=== PATIENT | female | born 1970 | race Caucasian/White ===

== ENCOUNTER 2017-06-08 20:31 | Inpatient (IN) | payer MEDICARE, BC ==
[2017-06-08] MEDS ORDERED: Ondansetron INJ* 2 MG/ML VIAL IV ONE (23:41)
[2017-06-08] MEDS ORDERED: Morphine INJ* 4 MG/ML 1 ML CARPUJECT IV ONE (23:41)
[2017-06-08] MEDS ORDERED: Metoclopramide IV* 5 MG/ML 2 ML VIAL IV SLOW PU ONE (23:57)
[2017-06-09] MEDS ORDERED: HYDROmorphone INJ* 2 MG/ML CARPUJECT SYRINGE IV SLOW PU ONE (00:02)
[2017-06-09] MEDS: NS 0.9% 1000 ML* 2,000 ML IV ONE ×2 (00:34→02:54)
[2017-06-09 00:39] LABS: Hematocrit 41 % (35-47); Hemoglobin 14.2 g/dl (12.0-16.0); Mean Corpuscular HGB Conc 35 g/dl (31-36); Mean Corpuscular Hemoglobin 31 pg (27-31); Mean Corpuscular Volume 87 fL (80-97); Mean Platelet Volume 10 um3 (7.4-10.4); Red Blood Count 4.67 10^6/ul (4.0-5.4); Red Cell Distribution Width 13 % (10.5-15); White Blood Count 8.5 10^3/ul (3.5-10.8)
[2017-06-09 01:00] LABS: ALT 37 U/L (7-52); Albumin 4.6 g/dL (3.2-5.2); Alkaline Phosphatase 72 U/L (34-104); BUN/Creatinine Ratio 8.8 (8-20); Blood Urea Nitrogen 7 mg/dL (6-24); C Reactive Protein 13.98 mg/L (< 5.00); CO2 Carbon Dioxide 28 mmol/L (22-32); Calcium 10.1 mg/dL (8.6-10.3); Chloride 99 mmol/L (101-111); EGFR African American 98.5 (>60); EGFR Non-African American 76.6 (>60); Globulin 4.6 g/dL (2-4); Glucose 90 mg/dL (70-100); Lipase 17 U/L (11.0-82.0); Sodium 138 mmol/L (133-145); Total Protein 9.2 g/dL (6.4-8.9)
[2017-06-09] MEDS ORDERED: Iohexol 300* (CONTRAST) 10 ML SDV IV ONE (01:20)
[2017-06-09 01:30] LABS: Anion Gap 11 mmol/L (2-11)
[2017-06-09 01:57] LABS: Urine Bacteria Absent (Absent); Urine Bilirubin Negative (Negative); Urine Glucose Negative (Negative); Urine Nitrite Negative (Negative)
[2017-06-09] MEDS ORDERED: PROCHLORPERAZINE INJ 5 MG/ML 2 ML VIAL IV ONE (02:11)
[2017-06-09] MEDS ORDERED: Acetaminophen TAB* 325 MG PO PRN (03:01)
[2017-06-09] MEDS ORDERED: Al Hydrox/Mg Hydrox/Simet LIQ* 30 ML UDC PO PRN (03:01)
[2017-06-09] MEDS ORDERED: Diazepam SYRINGE* 5 MG/ML SYRINGE IV PRN ×2 (03:03→03:09)
[2017-06-09] MEDS ORDERED: HYDROmorphone INJ* 1 MG/ML CARPUJECT SYRINGE IV SLOW PU PRN (03:03)
[2017-06-09] MEDS ORDERED: NS 0.9% w/ 20 Meq KCL 1000 ML* 1,000 ML IV SCH (04:00)
[2017-06-09] MEDS: HYDROmorphone INJ* 2 MG/ML CARPUJECT SYRINGE IV SLOW PU PRN ×5 (04:10→20:36)
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
[2017-06-09] MEDS: Heparin VIAL(*) 5000 UNITS/ML VIAL (FIVE THOUSAND) SUBCUT SCH ×3 (06:00→21:32)
--- NOTE | 2017-06-09 08:14 | RAD ---
Indication: Small bowel obstruction, vomiting. Contrast: Administered 96.3 ml of OMNIPAQUE 300 mg/ml CT of the abdomen and pelvis was performed after oral and IV contrast administration. Coronal and sagittal reconstructed images were obtained. Lung bases demonstrate no pleural fluid, nodules or masses. Heart is of normal size without evidence of pericardial effusion. Liver is normal in size. No focal lesions or intrahepatic ductal dilatation is noted. Gallbladder demonstrates no calcified gallstones. Common duct is not dilated. The pancreas demonstrates no mass or pancreatic duct dilatation. The spleen is normal in size. No adrenal lesions are noted. The kidneys demonstrate symmetric nephrograms. No hydronephrosis is noted. No solid or cystic lesions are noted. No retroperitoneal lymphadenopathy is noted. Aorta and inferior vena cava is unremarkable. CT of the pelvis demonstrates no retroperitoneal or pelvic lymphadenopathy. Uterus and ovaries are unremarkable. The colon is filled with stool. No dilated loops of bowel are noted. The appendix is visualized and is normal. Degenerative disc disease at L5-S1 with spondylolysis right pars interarticularis at L5. No evidence of bowel obstruction is noted. There is dilatation of the colon with suggestion of some spasm at the gastroesophageal junction. Possibility of underlying esophagitis should be considered. Alternatively a mass is not excluded. IMPRESSION: Circumferential wall thickening of the gastroesophageal junction which may represent esophagitis although other etiologies including neoplastic is not excluded. Follow-up exam is suggested. No evidence of bowel obstruction is noted.
--- NOTE | 2017-06-09 09:39 | RAD ---
Indication: Small bowel obstruction. Fingernail Sculptor film of the abdomen demonstrates contrast in the colon as well as in the kidney. IMPRESSION: Contrast is noted in the colon and kidneys.
[2017-06-09] MEDS: Ondansetron INJ* 2 MG/ML VIAL IV PRN ×2 (09:41→19:32)
--- NOTE | 2017-06-09 11:37 | PN ---
Subjective Date of Service: 06/09/17 Interval History: Still has nausea, dry heaves, little or no benefit from anti-emetics. Last BM about 4 days ago. Objective Active Medications: Acetaminophen (Tylenol Tab*) 650 mg PO Q4H PRN PRN Reason: FEVER/PAIN Al Hydrox/Mg Hydrox/Simethicone (Maalox Plus*) 30 ml PO Q6H PRN PRN Reason: INDIGESTION Diazepam (Valium Syringe*) 2 mg IV BEDTIME PRN PRN Reason: SLEEP Heparin Sodium (Porcine) (Heparin Vial(*)) 5,000 units SUBCUT Q8HR [facility] Last Admin: 06/09/17 06:00 Dose: 5,000 units Hydromorphone HCl (Dilaudid Iv*) 2 mg IV SLOW PU Q4H PRN PRN Reason: PAIN Last Admin: 06/09/17 08:27 Dose: 2 mg Potassium Chloride/Dextrose (D5w 1/2 Ns Kcl 20 Meq 1000 Ml*) 1,000 mls @ 150 mls/hr IV PER RATE [facility] Ondansetron HCl (Zofran Inj*) 4 mg IV Q4H PRN PRN Reason: NAUSEA/VOMITING Last Admin: 06/09/17 09:41 Dose: 4 mg Pantoprazole Sodium (Protonix Iv*) 40 mg IV Q12H [facility] Vital Signs 06/09/17 06/09/17 06/09/17 03:27 03:29 03:30 Temperature Pulse Rate 93 88 Respiratory Rate Blood Pressure 121/65 116/77 (mmHg) O2 Sat by Pulse 95 94 Oximetry 06/09/17 06/09/17 06/09/17 04:00 04:10 04:19 Temperature 98.2 F Pulse Rate Respiratory 16 16 Rate Blood Pressure (mmHg) O2 Sat by Pulse Oximetry 06/09/17 06/09/17 04:53 08:27 Temperature 98.4 F Pulse Rate 100 Respiratory 18 16 Rate Blood Pressure 121/77 (mmHg) O2 Sat by Pulse 99 Oximetry Oxygen Devices in Use Now: None Appearance: Alert, sitting up in bed. In good spirits. Looks comfortable. Eyes: No Scleral Icterus Neck: NL Appearance and Movements; NL JVP, No Thyroid Enlargement, Masses Respiratory: Symmetrical Chest Expansion and Respiratory Effort, Clear to Auscultation, Clear to Percussion Cardiovascular: NL Sounds; No Murmurs; No JVD, RRR, No Edema, - Extremities: No Edema, No Clubbing, Cyanosis, - Skin: No Rash or Ulcers, No Nodules or Sclerosis, - Neurological: Alert and Oriented x 3, NL Sensation Result Diagrams: 06/09/17 00:24 06/09/17 01:35 Assess/Plan/Problems-Billing Assessment: - Patient Problems (1) Nausea Current Visit: Yes Status: Acute Code(s): R11.0 - NAUSEA SNOMED Code(s): 524983709 Comment: Thickening of distal esophagus on CT scan suggestive of esophagitis. Start IV prantoprazole. Anticipate endoscopy later 06/09. (2) Chronic pain Current Visit: Yes Status: Acute Code(s): G89.29 - OTHER CHRONIC PAIN SNOMED Code(s): 81382776 Comment: Continue IV hydromoprhone, anticipate resuming her outpt meds on discharge.
[2017-06-09] MEDS: D5W 1/2 NS KCl 20 Meq 1000 ML* 1,000 ML IV SCH ×2 (12:22→21:23)
[2017-06-09] MEDS: Pantoprazole IV* 40 MG IV SCH ×2 (12:23→23:46)
[2017-06-09] MEDS ORDERED: Meperidine SYRINGE* 50 MG/ML ONE (15:14)
[2017-06-09] MEDS ORDERED: Midazolam* 1 MG/ML 10 ML VIAL (10 MG) ONE (15:14)
[2017-06-10] MEDS: HYDROmorphone INJ* 2 MG/ML CARPUJECT SYRINGE IV SLOW PU PRN ×6 (00:38→22:20)
[2017-06-10] MEDS: D5W 1/2 NS KCl 20 Meq 1000 ML* 1,000 ML IV SCH ×3 (04:08→18:18)
[2017-06-10] MEDS: Heparin VIAL(*) 5000 UNITS/ML VIAL (FIVE THOUSAND) SUBCUT SCH ×3 (05:52→22:18)
[2017-06-10] MEDS: Ondansetron INJ* 2 MG/ML VIAL IV PRN (08:47)
[2017-06-10] MEDS ORDERED: HYDROmorphone INJ* 2 MG/ML CARPUJECT SYRINGE IV SLOW PU ONE (09:43)
--- NOTE | 2017-06-10 11:09 | PRO ---
DATE OF PROCEDURE: 06/10/2017 - inpatient, room number 340. PROCEDURE PERFORMED: EGD. INDICATION: Dysphagia. MEDICATIONS GIVEN: 75 mcg IV Fentanyl and 10 mg IV Versed. PROCEDURE: After the EGD procedure, including the risks, benefits, and alternatives, not limited to perforation, surgery, and/or were explained to Ms. Bundy, written consent was then obtained . IV medication was given and a bite block was placed between the teeth. An Olympus gastroscope wa s then inserted into the patient's mouth and advanced down into the esophagus. Immediately upon ent ering the esophagus, there was a large amount of retained food that seemed to fill pretty much the e ntirety of the esophagus. I did spend approximately 10 to 15 minutes suctioning out all the soft, s olid food. There was a coating of food on her mucosa. The esophagus did appear dilated. The scope was advanced to the GE junction. At that point, I was unable to advance the regular adult scope th rough the lower esophageal sphincter. It did appear very tight. The scope was withdrawn and replac ed with a pediatric gastroscope. I then was able to advance it down the esophagus to the GE junctio n. Again with very gentle pushing, I was able to advance the pediatric gastroscope through the ryan ent's GE junction into the body of the stomach. Retroflex view was unremarkable. Forward view also was unremarkable. An H. pylori biopsy was obtained. The scope was advanced through a widely paten t pylorus, into the duodenal bulb, and into the distal duodenum, both of which were unremarkable. T he scope was withdrawn from the patient. She tolerated the procedure well and was returned to her h ospital room in stable condition. IMPRESSION: 1. Complete upper endoscopy into the distal duodenum with biopsies. 2. Biopsy for H. pylori. 3. Dilated esophagus with retained food, very tight lower esophageal sphincter. All of these change s seem to be consistent with achalasia. The patient did have a chest CT the day before which did re veal a dilated esophagus and a narrowed GE junction. Again, I think that these changes are consiste nt with achalasia. I did have a long discussion with the patient regarding achalasia after she awok e from her conscious sedation. We discussed possible treatment options which would include either p neumatic dilatation with a large balloon size or a Heller myotomy. I have recommended that we contin ue her work-up at [facility]. I will refer her there for confirmatory manometry and t hen either likely myotomy versus pneumatic dilatation. She should remain on liquids from here on ou t. We likely will need to get a nutritional consult as the patient likely will need to be maintaine d on Jevity or another liquid nutritional supplement. [id number]/[facility] #: [id number]
[2017-06-10] MEDS: Pantoprazole IV* 40 MG IV SCH (11:25)
[2017-06-10] MEDS ORDERED: Senna TAB PO PRN (13:32)
[2017-06-10] MEDS ORDERED: Docusate CAP* 100 MG PO PRN (13:32)
[2017-06-10] MEDS ORDERED: PROCHLORPERAZINE INJ 5 MG/ML 2 ML VIAL IV PRN (13:35)
--- NOTE | 2017-06-10 16:29 | CONS ---
CC: Dr. Betancur CONSULTATION REPORT: DATE OF CONSULT: 06/09/17 REQUESTING PHYSICIAN: Dr. Roach. INDICATION: Nausea and vomiting. NARRATIVE: This is a 46-year-old female who is disabled from chronic pain who is on numerous pain m edications. She was admitted to the hospital late last night or early this morning with nausea, vom iting and epigastric pain. She states that her symptoms have been present for the past 2 to 3 month s. At first, she was having dysphagia to solids; however, now it has progressed to liquids. She st ates that she really cannot keep anything down at this point. She has lost approximately 20 pounds. She called her primary care office who referred her directly to the emergency room and the patient was admitted. The patient denies any significant GERD. She states that occasionally she will have GERD symptoms. No family history of esophageal malignancies or problems. When she vomits, she nakia l often vomit partially digested food. She does have occasional substernal chest pain. PAST MEDICAL HISTORY: Significant for SVT. PAST SURGICAL HISTORY: Includes wrist surgery and thoracic vertebral body surgery. MEDICATIONS: Include: 1. MS Contin. 2. Soma. 3. Vicodin. 4. Valium. ALLERGIES: None. FAMILY HISTORY: No GI malignancies. SOCIAL HISTORY: No tobacco or alcohol. REVIEW OF SYSTEMS: Twelve systems were reviewed, other than that mentioned in the HPI, were unremar kable. PHYSICAL EXAM: Temperature is 98.6, blood pressure is 114/67, pulse is 66. General: Well-appearing female, in no apparent distress, alert, oriented, pleasant, fluent. HEENT: Mucous membranes are moist without lesions, ulcers, or exudate. Neck is supple. Trachea is midline. Head is normocepha lic, atraumatic. Heart: Regular rate and rhythm. Lungs are clear to auscultation. Abdomen: Positi ve bowel sounds, soft, nontender, nondistended. No hepatosplenomegaly, masses, rebound, or guarding . Skin is warm and dry. DIAGNOSTIC STUDIES/LAB DATA: Workup to date does include a CT abdomen and pelvis which reveals circ umferential wall thickening of the gastroesophageal junction which may represent esophagitis, althou gh other etiologies including neoplasia is not excluded. In the body of the report, it states that no evidence of bowel obstruction is noted. Dilatation of the colon with suggestion of some spasm at the GE junction possibly of underlying esophagitis should be considered. Alternatively, a mass is n ot excluded. I believe that this is a typo when they say dilatation of the colon, I believe they me ant to say esophagus. Labs of note, white count is 8.5, platelets of 189,000. C-reactive protein is 13.92, albumin is 4.6 . LFTs are unremarkable. ASSESSMENT AND PLAN: This is a 46-year-old female with dysphagia that has been steadily progressing over the past couple of months. One possibility would include achalasia. I doubt a malignancy but this needs to be considered. We need to consider other motility disorders, strictures, rings, eosi nophilic esophagitis; however, given the likely dilatation of the body of the esophagus on the recen t CT in addition to spasm reported on the CT, I do wonder about achalasia. The patient does need an EGD today. I will make arrangements for it. [id number]/[facility] #: [id number]
--- NOTE | 2017-06-10 17:26 | PN ---
Subjective Date of Service: 06/10/17 Interval History: Patient continues to be unable to tolerate any PO intake. States she vomits when taking sips of water. Esophageal sphincter dilated enough to pass liquids per GI. Good pain control with IV pain medications. Slight decrease in symptoms with zofran. Patient denies CP, SOB, dizziness, changes in urine, or other new pain. Patient has not had a bowel movement in 6 days and complains of diffuse abdominal pain that is not new. Family History: Unchanged from Admission Social History: Unchanged from Admission Past Medical History: Unchanged from Admission Objective Active Medications: Acetaminophen (Tylenol Tab*) 650 mg PO Q4H PRN PRN Reason: FEVER/PAIN Al Hydrox/Mg Hydrox/Simethicone (Maalox Plus*) 30 ml PO Q6H PRN PRN Reason: INDIGESTION Diazepam (Valium Syringe*) 2 mg IV BEDTIME PRN PRN Reason: SLEEP Heparin Sodium (Porcine) (Heparin Vial(*)) 5,000 units SUBCUT Q8HR [facility] Last Admin: 06/10/17 14:24 Dose: 5,000 units Hydromorphone HCl (Dilaudid Iv*) 2 mg IV SLOW PU Q4H PRN PRN Reason: PAIN Last Admin: 06/10/17 14:23 Dose: 2 mg Potassium Chloride/Dextrose (D5w 1/2 Ns Kcl 20 Meq 1000 Ml*) 1,000 mls @ 150 mls/hr IV PER RATE [facility] Last Admin: 06/10/17 11:25 Dose: 150 mls/hr Lansoprazole (Prevacid Solutab*) 30 mg PO 0730 [facility] Ondansetron HCl (Zofran Inj*) 4 mg IV Q4H PRN PRN Reason: NAUSEA/VOMITING Last Admin: 06/10/17 08:47 Dose: 4 mg Prochlorperazine Edisylate (Compazine Inj*) 5 mg IV Q6H PRN PRN Reason: NAUSEA/VOMITING Last Admin: 06/10/17 14:35 Dose: 5 mg Vital Signs 06/09/17 06/09/17 06/09/17 17:39 19:28 19:42 Temperature 99.1 F Pulse Rate 62 Respiratory 16 16 16 Rate Blood Pressure 106/62 (mmHg) O2 Sat by Pulse 96 Oximetry 06/09/17 06/09/17 06/09/17 20:36 21:36 23:49 Temperature 98.8 F Pulse Rate 60 Respiratory 16 16 16 Rate Blood Pressure 115/73 (mmHg) O2 Sat by Pulse 98 Oximetry 06/10/17 06/10/17 06/10/17 00:38 01:38 04:08 Temperature 99.0 F Pulse Rate 69 Respiratory 16 16 16 Rate Blood Pressure 126/75 (mmHg) O2 Sat by Pulse 96 Oximetry 06/10/17 06/10/17 06/10/17 04:42 05:42 07:11 Temperature 98.4 F Pulse Rate 61 Respiratory 16 16 16 Rate Blood Pressure 113/61 (mmHg) O2 Sat by Pulse 96 Oximetry 06/10/17 06/10/17 06/10/17 08:30 08:47 09:47 Temperature Pulse Rate Respiratory 16 16 16 Rate Blood Pressure (mmHg) O2 Sat by Pulse Oximetry 06/10/17 06/10/17 06/10/17 10:06 11:06 11:59 Temperature 98.0 F Pulse Rate 54 Respiratory 16 16 16 Rate Blood Pressure 103/66 (mmHg) O2 Sat by Pulse 96 Oximetry 06/10/17 06/10/17 14:23 15:20 Temperature 98.5 F Pulse Rate 58 Respiratory 16 14 Rate Blood Pressure 113/61 (mmHg) O2 Sat by Pulse 95 Oximetry Oxygen Devices in Use Now: None Appearance: Patient is a 46yo female who appears atated age and is sitting in the hospital bed in [facility]. Eyes: No Scleral Icterus, PERRLA Ears/Nose/Mouth/Throat: NL Teeth, Lips, Gums, Mucous Membranes Moist, - - Slight pharyngeal erythema and palatal petichiae Neck: NL Appearance and Movements; NL JVP, Trachea Midline Respiratory: Symmetrical Chest Expansion and Respiratory Effort, Clear to Auscultation Cardiovascular: NL Sounds; No Murmurs; No JVD, RRR, No Edema Abdominal: No Hepatosplenomegaly, - - Hypoactive BS present in all 4 quadrants. Tenderness to light and deep palpation in all quadrants and worst in the epigastric area. Lymphatic: No Cervical Adenopathy Extremities: No Edema Skin: No Rash or Ulcers Neurological: Alert and Oriented x 3, NL Muscle Strength and Tone, - - CNII-XII grossly intact Result Diagrams: 06/09/17 00:24 06/09/17 01:35 Additional Lab and Data: 06/09/17 06/09/17 06/09/17 00:24 00:24 00:24 WBC 8.5 RBC 4.67 Hgb 14.2 Hct 41 MCV 87 MCH 31 MCHC 35 RDW 13 Plt Count 189 MPV 10 Neut % (Auto) 65.8 Lymph % (Auto) 25.8 [place] % (Auto) 7.6 Eos % (Auto) 0.1 Baso % (Auto) 0.7 Absolute Neuts (auto) 5.6 Absolute Lymphs (auto) 2.2 Absolute Monos (auto) 0.6 Absolute Eos (auto) 0 Absolute Basos (auto) 0.1 Absolute Nucleated RBC 0 Nucleated RBC % 0.1 Sodium 138 Potassium TNP Chloride 99 L Carbon Dioxide 28 Anion Gap 11 BUN 7 Creatinine 0.80 Est GFR ( Amer) 98.5 Est GFR (Non-Af Amer) 76.6 BUN/Creatinine Ratio 8.8 Glucose 90 Lactic Acid < 0.3 L Calcium 10.1 Total Bilirubin 0.60 AST TNP ALT 37 Alkaline Phosphatase 72 C-Reactive Protein 13.98 H Total Protein 9.2 H Albumin 4.6 Globulin 4.6 H Albumin/Globulin Ratio 1.0 Lipase 17 Urine Color Urine Appearance Urine pH Ur Specific [place] Urine Protein Urine Ketones Urine Blood Urine Nitrate Urine Bilirubin Urine Urobilinogen Ur Leukocyte Esterase Urine WBC (Auto) Urine RBC (Auto) Ur Squamous Epith Cells Urine Bacteria Urine Glucose 06/09/17 06/09/17 01:15 01:35 WBC RBC Hgb Hct MCV MCH MCHC RDW Plt Count MPV Neut % (Auto) Lymph % (Auto) [place] % (Auto) Eos % (Auto) Baso % (Auto) Absolute Neuts (auto) Absolute Lymphs (auto) Absolute Monos (auto) Absolute Eos (auto) Absolute Basos (auto) Absolute Nucleated RBC Nucleated RBC % Sodium Potassium 3.1 L Chloride Carbon Dioxide Anion Gap BUN Creatinine Est GFR ( Amer) Est GFR (Non-Af Amer) BUN/Creatinine Ratio Glucose Lactic Acid Calcium Total Bilirubin AST 31 ALT Alkaline Phosphatase C-Reactive Protein Total Protein Albumin Globulin Albumin/Globulin Ratio Lipase Urine Color [place] Urine Appearance Clear Urine pH 6.0 Ur Specific [place] 1.027 Urine Protein 2+(100 mg/dl) H Urine Ketones 2+ H Urine Blood Negative Urine Nitrate Negative Urine Bilirubin Negative Urine Urobilinogen Negative Ur Leukocyte Esterase 1+ H Urine WBC (Auto) 1+(6-10/hpf) H Urine RBC (Auto) Trace(0-2/hpf) Ur Squamous Epith Cells Present H Urine Bacteria Absent Urine Glucose Negative Microbiology and Other Data: Microbiology 06/09/17 15:42 CLOtest - Final Gastric Antrum Assess/Plan/Problems-Billing Assessment: Patient is a 46yo female with a PMH significant for chronic pain and opioid use who presented yesterday with symptoms consistent with achalasia which was confirmed yesterday by endoscopy. - Patient Problems (1) Achalasia Current Visit: Yes Status: Acute Code(s): K22.0 - ACHALASIA OF CARDIA SNOMED Code(s): 98232539 Comment: Achalasia confirmed by endoscopy. Patient unable to take any PO intake. IVF for nutritional and electrolyte supplementation. Pain meds IV. Per GI should go to [facility] for manometry and evaluation for surgical management. (2) Constipation Current Visit: Yes Status: Acute Code(s): K59.00 - CONSTIPATION, UNSPECIFIED SNOMED Code(s): 57681648 Comment: Patient constipated most likely due to opoid use. Baseline abdominal discomfort. Will treat when able to take PO intake. (3) Full code status Current Visit: Yes Status: Acute Code(s): Z78.9 - OTHER SPECIFIED HEALTH STATUS SNOMED Code(s): 311181896 (4) Chronic pain Current Visit: Yes Status: Acute Code(s): G89.29 - OTHER CHRONIC PAIN SNOMED Code(s): 69855040 Comment: Continue IV hydromoprhone, anticipate resuming her outpt meds on discharge. (5) Nausea Current Visit: Yes Status: Acute Code(s): R11.0 - NAUSEA SNOMED Code(s): 840935507 Comment: Per GI, Patient's achalasia should be able to pass fluids. Nausea and vomiting most likely due to learned behaviors. Will order Compazine PRN in addition to zofran to possibly help with PO intake. Continue IV pantoprazole. (6) DVT prophylaxis Current Visit: Yes Status: Acute Code(s): DMJ9333 - SNOMED Code(s): 467462064 Comment: Heparin and SCDs in bed. Status and Disposition: Patient is admitted inpatient until able to tolerate pain meds and get nutrition PO.
[2017-06-11] MEDS: D5W 1/2 NS KCl 20 Meq 1000 ML* 1,000 ML IV SCH ×3 (01:01→14:36)
[2017-06-11] MEDS: HYDROmorphone INJ* 2 MG/ML CARPUJECT SYRINGE IV SLOW PU PRN ×5 (02:25→18:30)
[2017-06-11] MEDS: Heparin VIAL(*) 5000 UNITS/ML VIAL (FIVE THOUSAND) SUBCUT SCH ×2 (06:24→14:36)
[2017-06-11] MEDS: Ondansetron INJ* 2 MG/ML VIAL IV PRN ×2 (06:31→10:30)
[2017-06-11 07:03] LABS: Hematocrit 34 % (35-47); Mean Corpuscular HGB Conc 35 g/dl (31-36); Mean Corpuscular Hemoglobin 30 pg (27-31); Mean Corpuscular Volume 86 fL (80-97); Mean Platelet Volume 10 um3 (7.4-10.4); Red Blood Count 3.99 10^6/ul (4.0-5.4); Red Cell Distribution Width 13 % (10.5-15); White Blood Count 4.7 10^3/ul (3.5-10.8)
[2017-06-11 07:18] LABS: Anion Gap 4 mmol/L (2-11); CO2 Carbon Dioxide 28 mmol/L (22-32); Calcium 8.8 mg/dL (8.6-10.3); Chloride 105 mmol/L (101-111); EGFR African American 132.1 (>60); EGFR Non-African American 102.7 (>60); Glucose 118 mg/dL (70-100); Potassium 3.5 mmol/L (3.5-5.0); Sodium 137 mmol/L (133-145)
[2017-06-11] MEDS ORDERED: Lansoprazole SOLUTAB* 30 MG PO SCH (07:30)
[2017-06-11 09:33] LABS: BUN/Creatinine Ratio 3.2 (8-20); Blood Urea Nitrogen < 2 mg/dL (6-24)
[2017-06-11] MEDS ORDERED: Ondansetron ODT TAB* 4 MG SL PRN ×2 (12:04→12:05)
[2017-06-11] MEDS ORDERED: Morphine TAB Extended Release (*) 30 MG TAB.ER PO SCH (13:00)
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
[2017-06-11 15:46] VITALS: BP 111/64
--- NOTE | 2017-06-11 17:17 | PN ---
Progress Note - Progress Note Date of Service: 06/11/17 - Gastroenterology Note: Patient seen and examined. No new overnight issues. Worried about being able to tolerate her pain medications. Tolerating clear liquid without emesis. Does admit to nausea. Complains of chronic back pain. Bowel movements have been loose and occur immediately after drinking liquids. No rectal bleeding/melena. Vital Signs: Temp Pulse Resp BP Pulse Ox 98.4 F 64 18 111/64 96 06/11/17 15:25 06/11/17 15:25 06/11/17 15:37 06/11/17 15:25 06/11/17 15:25 PHYSICAL EXAMINATION: GENERAL: AAO x 3, NAD. HEENT: Dry MM. CV: RRR. PULM: CTAB. ABDOMEN: soft, NT/ND, BS x 4 quadrants. EXTREMITIES: warm and no edema in lower extremities. LABS: Laboratory Last Values WBC 4.7 10^3/ul (3.5-10.8) 06/11/17 06:39 RBC 3.99 10^6/ul (4.0-5.4) L 06/11/17 06:39 Hgb 12.0 g/dl (12.0-16.0) 06/11/17 06:39 Hct 34 % (35-47) L 06/11/17 06:39 MCV 86 fL (80-97) 06/11/17 06:39 MCH 30 pg (27-31) 06/11/17 06:39 MCHC 35 g/dl (31-36) 06/11/17 06:39 RDW 13 % (10.5-15) 06/11/17 06:39 Plt Count 174 10^3/ul (150-450) 06/11/17 06:39 MPV 10 um3 (7.4-10.4) 06/11/17 06:39 Neut % (Auto) 40.3 % (38-83) 06/11/17 06:39 Lymph % (Auto) 46.9 % (25-47) 06/11/17 06:39 Woodward % (Auto) 11.6 % (1-9) H 06/11/17 06:39 Eos % (Auto) 0.8 % (0-6) 06/11/17 06:39 Baso % (Auto) 0.4 % (0-2) 06/11/17 06:39 Absolute Neuts (auto) 1.9 10^3/ul (1.5-7.7) 06/11/17 06:39 Absolute Lymphs (auto) 2.2 10^3/ul (1.0-4.8) 06/11/17 06:39 Absolute Monos (auto) 0.5 10^3/ul (0-0.8) 06/11/17 06:39 Absolute Eos (auto) 0 10^3/ul (0-0.6) 06/11/17 06:39 Absolute Basos (auto) 0 10^3/ul (0-0.2) 06/11/17 06:39 Absolute Nucleated RBC 0 10^3/ul 06/11/17 06:39 Nucleated RBC % 0 06/11/17 06:39 Sodium 137 mmol/L (133-145) 06/11/17 06:40 Potassium 3.5 mmol/L (3.5-5.0) 06/11/17 06:40 Chloride 105 mmol/L (101-111) 06/11/17 06:40 Carbon Dioxide 28 mmol/L (22-32) 06/11/17 06:40 Anion Gap 4 mmol/L (2-11) 06/11/17 06:40 BUN < 2 mg/dL (6-24) L 06/11/17 06:40 Creatinine 0.62 mg/dL (0.51-0.95) 06/11/17 06:40 Est GFR ( Amer) 132.1 (>60) 06/11/17 06:40 Est GFR (Non-Af Amer) 102.7 (>60) 06/11/17 06:40 BUN/Creatinine Ratio 3.2 (8-20) L 06/11/17 06:40 Glucose 118 mg/dL (70-100) H 06/11/17 06:40 Lactic Acid < 0.3 mmol/L (0.5-2.0) L 06/09/17 00:24 Calcium 8.8 mg/dL (8.6-10.3) 06/11/17 06:40 Total Bilirubin 0.60 mg/dL (0.2-1.0) 06/09/17 00:24 AST 31 U/L (13-39) 06/09/17 01:35 ALT 37 U/L (7-52) 06/09/17 00:24 Alkaline Phosphatase 72 U/L (34-104) 06/09/17 00:24 C-Reactive Protein 13.98 mg/L (< 5.00) H 06/09/17 00:24 Total Protein 9.2 g/dL (6.4-8.9) H 06/09/17 00:24 Albumin 4.6 g/dL (3.2-5.2) 06/09/17 00:24 Globulin 4.6 g/dL (2-4) H 06/09/17 00:24 Albumin/Globulin Ratio 1.0 (1-3) 06/09/17 00:24 Lipase 17 U/L (11.0-82.0) 06/09/17 00:24 Urine Color Kennedi 06/09/17 01:15 Urine Appearance Clear 06/09/17 01:15 Urine pH 6.0 (5-9) 06/09/17 01:15 Ur Specific [place]issa 1.027 (1.010-1.030) 06/09/17 01:15 Urine Protein 2+(100 mg/dl) (Negative) H 06/09/17 01:15 Urine Ketones 2+ (Negative) H 06/09/17 01:15 Urine Blood Negative (Negative) 06/09/17 01:15 Urine Nitrate Negative (Negative) 06/09/17 01:15 Urine Bilirubin Negative (Negative) 06/09/17 01:15 Urine Urobilinogen Negative (Negative) 06/09/17 01:15 Ur Leukocyte Esterase 1+ (Negative) H 06/09/17 01:15 Urine WBC (Auto) 1+(6-10/hpf) (Absent) H 06/09/17 01:15 Urine RBC (Auto) Trace(0-2/hpf) (Absent) 06/09/17 01:15 Ur Squamous Epith Cells Present (Absent) H 06/09/17 01:15 Urine Bacteria Absent (Absent) 06/09/17 01:15 Urine Glucose Negative (Negative) 06/09/17 01:15 A/P: 46 yo female with progressive dysphagia to solids and liquids with associated weight loss. EGD was done and patient was found to have a dilated esophagus and tight GEJ. Esophagus was full of food s/p disimpaction. 1. Progressive dsyphagia to solids and liquids with weight loss s/p EGD ~Symptoms and endoscopic finding consistent with achalasia. ~It tolerates clear liquids and oral pain medications can be discharged home from GI standpoint. ~Patient will make an appt with [facility] with CT surgery. Medical records have already been sent to them. ~Will need an esophageal manometry to confirm achalasia prior to surgery (this will be done at [facility]). D/w case with PA and nursing team. Please call with any further questions or concerns. Ivory Martel D.O.
--- NOTE | 2017-06-12 12:09 | DS ---
AMENDED REPORT NOW INCLUDES COSIGNER DESIGNATION - ESIGNED BEFORE ADJUSTMENTS CC: Jason Betancur MD; Dr. Fine * DISCHARGE SUMMARY: DATE OF ADMISSION: 06/09/17 DATE OF DISCHARGE: 06/11/17 PRIMARY CARE PROVIDER: Jason Betancur MD ATTENDING PHYSICIAN: Delfino Cordero MD * (DICTATED BY LUZ MARIA VICTORIA) PRIMARY DISCHARGE DIAGNOSIS: Achalasia. SECONDARY DISCHARGE DIAGNOSIS: Chronic pain. DISCHARGE MEDICATIONS: 1. Percodan 5/325 mg 1 tab p.o. as needed. 2. Diazepam 5 mg p.o. as needed. 3. Lortab 1 tab q.6 hours as needed. 4. MS Contin 60 mg p.o. 3 times a day. 5. Soma 350 mg p.o. 4 times a day. NEW MEDICATIONS ON DISCHARGE: 1. Lansoprazole SoluTab 30 mg tab daily in the morning. 2. Ondansetron oral dissolving tablet 4 mg tab p.r.n. q.4. STUDIES DONE WHILE IN THE HOSPITAL: Abdomen and pelvis CT read as circumferential wall thickening of the gastroesophageal junction, which may represent esophagitis or other etiologies including neoplastic, followup exam is suggested. Abdomen x-ray shows contrast noted in the colon and kidneys. Endoscopy procedure shows complete upper dilated esophagus, retained food, very tight lower esophageal sphincter consistent with achalasia. HOSPITAL COURSE: This is a brief summary of the hospital course. For more details, please see the H and P from Dr. Krystyna Roach from 06/09/17. This patient is a 46-year-old female with past medical history significant only for chronic pain, who presented to the ED with intractable nausea and vomiting of undigested food. Abdomen and pelvis CT showed circumferential thickening of the gastroesophageal junction and the patient was admitted for antiemetic therapy and endoscopy in the morning. Endoscopy done by Dr. Surya Fine showed findings consistent with achalasia including a tight gastroesophageal sphincter and retained food. Please see procedure report for more complete details. The patient continued to have nausea and difficulty taking fluids while in the hospital. Antiemetics were moderately helpful. The patient was able to progressively take in more liquids without vomiting and though it was still difficult for her, she was able to take in sufficient liquids to take her home pain medications on which she is reliant. The patient then stated that she was comfortable to go home and to follow up with Dr. Fine at [facility], has recommended for manometry and definitive treatment of her achalasia. Nutrition was consulted and they recommended Ensure for nutritional supplementation and the patient already had these at home and is willing to use them as needed. PHYSICAL EXAMINATION ON DAY OF DISCHARGE: General: The patient is a 46-year- old female who looks stated age, sitting comfortably in the hospital bed. Vital Signs: Temperature 84, pulse rate 64, respiratory rate 15, oxygen saturation 96% on room air, blood pressure 111/64. HEENT: Head normocephalic, atraumatic. Eyes, sclerae anicteric. Pharynx shows no signs of erythema or erosions. Mucous membranes are moist. Neck: Supple, nontender. Heart: Regular rate and rhythm. No clicks, murmurs, gallops, or rubs. Respiratory: Clear to auscultation bilaterally. No wheezes, rales, or rhonchi. Good air exchange. Abdomen: Bowel sounds present in all 4 quadrants and hypoactive. Nondistended. There is significant tenderness to palpation with involuntary guarding over the epigastric area. There is no other tenderness. No hepatosplenomegaly. Genitourinary: No suprapubic tenderness or CVA tenderness. Skin: Clean, dry, pink, intact. Neuro: Cranial nerves II through XII were grossly intact. Gait normal. Alert and oriented x3. DISCHARGE PLAN: The patient will be discharged home on a clear liquid diet and will follow up as soon as possible with Dr. Fine at [facility] for definitive care of her endoscopy. The patient will be prescribed antiemetics, will be prescribed Zofran oral dissolving tablet and lansoprazole SoluTab for gastroesophageal reflux disease prevention and nausea prevention. The patient should return to the hospital if she is unable to tolerate p.o. intake again or if there are any other sudden increase in her pain or other alarming symptoms. TIME SPENT: Approximately 60 minutes were spent on this discharge, 30 of which was spent face to face with the patient in counseling and obtaining history and physical. LUZ MARIA VICTORIA [id number] #: [id number] JAYLON
== END 2017-06-11 19:40 | disposition home or self-care (01) | DRG 243 ==
LOC: ED 20:31 → SSU 06-09 03:01
PROVIDERS: ADMIT Pediatrics; ATTEND Internal Medicine
PROC: 0DB68ZX Excision of Stomach, Via Natural or Artificial Opening Endoscopic, Diagnostic (ICD-10-PCS; principal; 2017-06-10)
DX: K22.0 Achalasia of cardia (principal); I10 Essential (primary) hypertension; G89.29 Other chronic pain; K59.00 Constipation, unspecified; M51.34 Other intervertebral disc degeneration, thoracic region; J45.909 Unspecified asthma, uncomplicated; M19.90 Unspecified osteoarthritis, unspecified site; B19.20 Unspecified viral hepatitis C without hepatic coma; Z83.3 Family history of diabetes mellitus
CPT/HCPCS: 36415; 74000; 74177; 80048; 80053; 81003; 81015; 83605; 83690; 85025; 86140; 87077; 87086; 99156; 99157; A9270-GY; J0780; J1170; J1644; J2250; J2270; J2310; J2405; J2765; Q9967